=== PATIENT | male | born 1985 | race Hispanic/Latino ===

== ENCOUNTER 2017-02-18 10:43 | Day surgery (SDC) | payer BC ==
[2017-02-15 13:00] VITALS: BMI 28.1
[2017-02-18] MEDS ORDERED: Indomethacin 50 MG Suppository PR ONE ×2 (11:23→15:09)
[2017-02-18 11:49] LABS: BASO # 0.04 K/mm3 (0.0-2.0); BASO % 0.7 % (0.0-3.0); EOS # 0.2 (0.0-0.7); EOS % 3.6 % (1.5-5.0); GRAN # 3.5 (1.4-6.5); GRAN % 60.4 % (50.0-68.0); HEMATOCRIT 43.8 % (42.0-52.0); LYMPH # 1.6 (1.2-3.4); LYMPH % 26.9 % (22.0-35.0); MEAN CELL VOLUME 86.4 fl (80.0-105.0); MEAN CORPUSCULAR HEMOGLOBIN 31.8 pg (25.0-35.0); MEAN CORPUSCULAR HGB CONC 36.8 g/dl (31.0-37.0); MEAN PLATELET VOLUME 10.5 fl (7.0-11.0); MONO # 0.5 (0.1-0.6); MONO % 8.4 % (1.0-6.0); RED CELL DISTRIBUTION WIDTH 12.8 % (11.5-14.5); WHITE BLOOD COUNT 5.8 10^3/ul (4.5-11.0)
[2017-02-18 11:56] LABS: ALB/GLOB RATIO 1.6 (1.1-1.8); ALKALINE PHOSPHATASE 91 U/L (38-126); ALT/SGPT 124 U/L (7-56); AMYLASE 76 U/L (35-125); AST/SGOT 53 U/L (17-59); BILIRUBIN,TOTAL 2.8 mg/dL (0.2-1.3); BLOOD UREA NITROGEN 17 mg/dL (7-21); CALCIUM 9.6 mg/dL (8.4-10.5); CARBON DIOXIDE 27 mmol/L (21-33); CHLORIDE 104 mmol/L (98-107); GFR AFRICAN-AMERICAN > 60; GLUCOSE,RANDOM 94 mg/dL (70-110); LIPASE 144 U/L (23-300); POTASSIUM 4.2 mmol/L (3.6-5.0); SODIUM 144 mmol/L (132-148); TOTAL PROTEIN 7.9 g/dL (5.8-8.3)
[2017-02-18 11:57] LABS: INR 1.03 (0.93-1.08); PARTIAL THROMBOPLASTIN TIME 28.7 Seconds (23.7-30.8)
[2017-02-18] MEDS ORDERED: Iohexol 240 (50 ml) ONE (13:06)
[2017-02-18] MEDS ORDERED: Propofol 10 mg/ml Inj (20 ML) ONE (13:49)
[2017-02-18] MEDS ORDERED: Succinylcholine 200 mg/10 ml Inj IV ONE (13:49)
[2017-02-18] MEDS ORDERED: Midazolam 2 MG/2 ML VIAL ONE (13:49)
[2017-02-18] MEDS ORDERED: Neostigmine Methylsulfate 3mg/3ml Syringe IV ONE (15:45)
[2017-02-18] MEDS ORDERED: Sodium Chloride 0.9% 1,000 ML IV SCH (16:00)
[2017-02-18 16:58] VITALS: TEMP 97.8; O2SAT 96
[2017-02-18 17:52] VITALS: BP 116/68; PULSE 68; RESP 18
== END 2017-02-18 17:45 | disposition home or self-care (01) ==
LOC: ENDO 10:43
PROVIDERS: ATTEND Internal Medicine Gastroenterology
DX: K80.50 Calculus of bile duct without cholangitis or cholecystitis without obstruction (principal); K29.50 Unspecified chronic gastritis without bleeding
CPT/HCPCS: 36415; 43237; 43239; 43262; 43264; 74330; 80053; 82150; 82248; 82977; 83690; 85025; 85610; 85730; 88305; 88342; C1726; J0330; J2250; J2405; J2704; J2710; J3010; J7040 ×2; Q9966